=== PATIENT | male | born 1980 ===

== ENCOUNTER 2020-01-06 17:28 | Inpatient (IN) ==
[2020-01-06] MEDS ORDERED: DEXTROSE 50% 25 GM/50 ML VIAL IV PRN ×3 (20:02→20:34)
[2020-01-06] MEDS ORDERED: GLUCAGON 1 MG VIAL IM PRN ×3 (20:02→20:34)
[2020-01-06] MEDS ORDERED: hydrALAZINE 20 MG/1 ML VIAL IV PRN (20:38)
[2020-01-06 21:20] LABS: Basophils % 0.3 % (0.0-0.8); Eosinophils % 0.1 % (0.00-10.9); Hematocrit 40.3 VOL% (42.0-52.0); Hemoglobin 14.5 GM/DL (14.0-18.0); Immature Granulocytes % 0.4 %; Immature Granulocytes Absolute 0.03 #; Lymphocytes # 1.1 10*3/uL (1.4-4.0); Lymphocytes % 13.8 % (21.2-54.2); Mean Corpuscular Volume 84.5 FL (87-102); Mean Platelet Volume 10.5 FL (9.6-12.0); Monocytes % 5.7 % (1.7-12.7); Neutrophils % 79.7 % (38.7-73.9); Platelet Count 329 T/CUMM (130-400); Red Blood Count 4.77 MC/CUMM (3.8-5.5); Red Cell Distribution Width 11.6 % (9.3-17.3); White Blood Count 7.8 T/CUMM (4-12)
[2020-01-06 21:30] LABS: Albumin 3.7 G/DL (3.4-5.0); Bilirubin,Total 0.4 MG/DL (0.2-1.0); Calcium 9.1 MG/DL (8.5-10.1); Total Protein 7.5 G/DL (6.4-8.3)
[2020-01-06] MEDS: INSULIN LISPRO 100 UNIT/ML SUBCUT SCH (22:41)
[2020-01-06] MEDS: ENOXAPARIN 40 MG/0.4 ML SYRINGE SUBCUT SCH (23:09)
[2020-01-06] MEDS: PIPERACILLIN/TAZOBACTAM 3,375 MG in SODIUM CHLORIDE 0.9% 100 ML IV SCH (23:10)
[2020-01-07] MEDS: VANCOMYCIN INJ 1,500 MG in SODIUM CHLORIDE 0.9% 500 ML IV SCH ×2 (03:12→15:04)
[2020-01-07 07:00] LABS: Basophils % 0.3 % (0.0-0.8); Eosinophils # 0.1 10*3/uL (0.0-0.87); Eosinophils % 0.9 % (0.00-10.9); Hematocrit 40.4 VOL% (42.0-52.0); Hemoglobin 14.4 GM/DL (14.0-18.0); Immature Granulocytes % 0.3 %; Immature Granulocytes Absolute 0.02 #; Lymphocytes # 1.7 10*3/uL (1.4-4.0); Lymphocytes % 24.6 % (21.2-54.2); Mean Corpuscular HGB Conc 35.6 GM/DL (32-36); Mean Corpuscular Volume 85.8 FL (87-102); Mean Platelet Volume 10.2 FL (9.6-12.0); Neutrophils % 64.9 % (38.7-73.9); Platelet Count 309 T/CUMM (130-400); Red Blood Count 4.71 MC/CUMM (3.8-5.5); Red Cell Distribution Width 11.6 % (9.3-17.3); White Blood Count 6.8 T/CUMM (4-12)
[2020-01-07 07:39] LABS: Albumin 3.4 G/DL (3.4-5.0); Bilirubin,Total 0.6 MG/DL (0.2-1.0); Calcium 9.1 MG/DL (8.5-10.1); Osmolality,Calculated 278.7 MOS/KG (273-304); Thyroid Stimulating Hormone 9.32 uIU/ml (0.358-3.74); Total Protein 7.1 G/DL (6.4-8.3)
[2020-01-07] MEDS: PIPERACILLIN/TAZOBACTAM 3,375 MG in SODIUM CHLORIDE 0.9% 100 ML IV SCH ×3 (08:18→23:50)
[2020-01-07] MEDS: INSULIN LISPRO 100 UNIT/ML SUBCUT SCH ×4 (09:24→21:57)
[2020-01-07] MEDS: lisinopriL 20 MG TABLET PO SCH (11:56)
[2020-01-07] MEDS ORDERED: INSULIN GLARGINE 100 UNIT/ML SUBCUT SCH (21:00)
[2020-01-07] MEDS: cloNIDine 0.1 MG TABLET PO PRN (21:57)
[2020-01-07] MEDS: ENOXAPARIN 40 MG/0.4 ML SYRINGE SUBCUT SCH (21:57)
[2020-01-08] MEDS: VANCOMYCIN INJ 1,500 MG in SODIUM CHLORIDE 0.9% 500 ML IV SCH (03:00)
[2020-01-08] MEDS ORDERED: LEVOTHYROXINE 25 MCG TABLET PO SCH (06:30)
[2020-01-08 07:08] LABS: Basophils % 0.5 % (0.0-0.8); Eosinophils # 0.1 10*3/uL (0.0-0.87); Eosinophils % 1.3 % (0.00-10.9); Hematocrit 41.3 VOL% (42.0-52.0); Hemoglobin 14.5 GM/DL (14.0-18.0); Immature Granulocytes % 0.3 %; Immature Granulocytes Absolute 0.02 #; Lymphocytes # 2.1 10*3/uL (1.4-4.0); Lymphocytes % 35.4 % (21.2-54.2); Mean Corpuscular HGB Conc 35.1 GM/DL (32-36); Mean Corpuscular Volume 86.2 FL (87-102); Mean Platelet Volume 10.7 FL (9.6-12.0); Monocytes % 8.5 % (1.7-12.7); Platelet Count 292 T/CUMM (130-400); Red Blood Count 4.79 MC/CUMM (3.8-5.5); Red Cell Distribution Width 11.8 % (9.3-17.3)
[2020-01-08 07:19] LABS: Osmolality,Calculated 285.3 MOS/KG (273-304)
[2020-01-08] MEDS: lisinopriL 20 MG TABLET PO SCH (08:17)
[2020-01-08] MEDS: INSULIN LISPRO 100 UNIT/ML SUBCUT SCH ×2 (08:17→11:55)
[2020-01-08] MEDS: PIPERACILLIN/TAZOBACTAM 3,375 MG in SODIUM CHLORIDE 0.9% 100 ML IV SCH (08:17)
[2020-01-08 11:25] VITALS: BP 185/94
[2020-01-08] MEDS: cloNIDine 0.1 MG TABLET PO PRN (11:54)
== END 2020-01-08 14:14 | disposition home or self-care (01) | DRG 638 ==
LOC: N.3E 19:43 → SUATTDRO 19:43
PROVIDERS: ADMIT Internal Medicine; ATTEND Internal Medicine